=== PATIENT | female | born 1980 | race Two or more races ===

== ENCOUNTER 2024-06-24 15:42 | Inpatient (IN) | payer OTHER ==
[2024-06-24] MEDS ORDERED: MAG HYDROX/ALUMINUM HYD/SIMETH ES 30 ML SUSPENSION UDCUP PO PRN (16:00)
[2024-06-24] MEDS ORDERED: LOPERAMIDE HCL 2 MG CAPSULE PO PRN (16:00)
[2024-06-24] MEDS ORDERED: MAGNESIUM HYDROXIDE SUSPENSION 30 ML UDCUP PO PRN (16:00)
[2024-06-24] MEDS ORDERED: HALOPERIDOL 5 MG TABLET PO PRN (16:00)
[2024-06-24] MEDS ORDERED: ACETAMINOPHEN 325 MG TABLET PO PRN (16:00)
[2024-06-25] MEDS ORDERED: LORazepam 2 MG/ML VIAL ONE (03:42)
[2024-06-25] MEDS ORDERED: HALOPERIDOL LACTATE 5 MG/ML VIAL ONE (03:42)
[2024-06-25] MEDS ORDERED: DiphenhydrAMINE HCL 50 MG/ML VIAL ONE (03:42)
[2024-06-25] MEDS ORDERED: HALOPERIDOL LACTATE 5 MG/ML VIAL IM ONE (03:45)
[2024-06-25] MEDS ORDERED: INFLUENZA VIRUS VACCINE TVS (6MO+) 2024-25/PF 45 MCG/0.5 ML SYRINGE IM. ONE (04:15)
[2024-06-25 04:17] VITALS: BP 120/69; PULSE 64; RESP 16; O2SAT 96
[2024-06-25] MEDS: DiphenhydrAMINE HCL 50 MG/ML VIAL IM ONE ×2 (04:26→04:28)
[2024-06-25] MEDS: LORazepam 2 MG/ML VIAL IM ONE ×2 (04:26→04:28)
[2024-06-25] MEDS: HALOPERIDOL LACTATE 5 MG/ML VIAL IM ONE (04:27)
[2024-06-25 04:45] VITALS: RESP 16
[2024-06-25 06:14] VITALS: BP 133/57; PULSE 64; RESP 16
[2024-06-25] MEDS ORDERED: ALBUTEROL SULFATE HFA 90 MCG/PUFF 8 GM INHALER IH PRN (06:45)
[2024-06-25] MEDS ORDERED: CloNIDine HCL 0.1 MG TABLET PO PRN (06:45)
[2024-06-25] MEDS ORDERED: MAGNESIUM HYDROXIDE SUSPENSION 30 ML UDCUP PO PRN (06:45)
[2024-06-25] MEDS ORDERED: DOCUSATE SODIUM 100 MG CAPSULE PO PRN (06:45)
[2024-06-25] MEDS ORDERED: LOPERAMIDE HCL 2 MG CAPSULE PO PRN (06:45)
[2024-06-25] MEDS ORDERED: PETROLATUM,WHITE 28 GM JELLY TP PRN (06:45)
[2024-06-25] MEDS ORDERED: GuaiFENesin/D-METHORPHAN [SUGAR-FREE] 200-20MG/10 ML SYRUP UDCUP PO PRN (06:45)
[2024-06-25] MEDS ORDERED: MAG HYDROX/ALUMINUM HYD/SIMETH ES 30 ML SUSPENSION UDCUP PO PRN (06:45)
[2024-06-25 08:36] VITALS: BP 113/60; PULSE 65; RESP 16; TEMP 97.6; O2SAT 98
[2024-06-25] MEDS: RisperiDONE 1 MG TABLET PO SCH (11:30)
[2024-06-25 23:45] VITALS: BP 122/68; PULSE 68; RESP 16; TEMP 97.2; O2SAT 98
[2024-06-26 20:46] VITALS: RESP 18
[2024-06-27 08:27] VITALS: RESP 18
[2024-06-27 20:16] VITALS: BP 115/75; PULSE 91; RESP 18; TEMP 98.1; O2SAT 100
[2024-06-28 09:31] VITALS: RESP 18
[2024-06-28] MEDS ORDERED: HALOPERIDOL LACTATE 5 MG/ML VIAL ONE (12:43)
[2024-06-28] MEDS ORDERED: DiphenhydrAMINE HCL 50 MG/ML VIAL ONE (12:43)
[2024-06-28] MEDS ORDERED: LORazepam 2 MG/ML VIAL ONE (12:43)
[2024-06-28] MEDS: LORazepam 2 MG/ML VIAL IM ONE (12:59)
[2024-06-28] MEDS: DiphenhydrAMINE HCL 50 MG/ML VIAL IM ONE (13:01)
[2024-06-28] MEDS: HALOPERIDOL LACTATE 5 MG/ML VIAL IM ONE (13:01)
[2024-06-29 08:57] VITALS: RESP 16
[2024-06-29] MEDS: LORazepam 2 MG TABLET PO PRN (09:45)
[2024-06-29 20:06] VITALS: BP 101/67; PULSE 73; RESP 20; TEMP 98; O2SAT 100
[2024-06-30 08:11] VITALS: RESP 18
[2024-06-30 20:28] VITALS: RESP 18
[2024-06-30] MEDS: ACETAMINOPHEN 325 MG TABLET PO PRN (20:29)
[2024-06-30 21:14] VITALS: BP 131/78; PULSE 63; RESP 18; TEMP 98.1; O2SAT 100
[2024-06-30 21:26] VITALS: RESP 1
[2024-07-01 08:17] VITALS: BP 97/59; PULSE 74; RESP 19; TEMP 98.2; O2SAT 98
[2024-07-01] MEDS: RisperiDONE 2 MG TABLET PO SCH (21:36)
[2024-07-02 00:13] VITALS: RESP 18; O2SAT 97
[2024-07-02 09:03] VITALS: RESP 18
[2024-07-02 20:16] VITALS: RESP 18
[2024-07-03 08:27] LABS: EOSINOPHILS % (AUTO) 2.8 % (1.0-6.0); HEMATOCRIT 37.4 % (36-46); HEMOGLOBIN 12.5 g/dL (12.0-16.0); LYMPHOCYTES # (AUTO) 2.8 K/uL (1.0-4.8); LYMPHOCYTES % (AUTO) 36.2 % (22.0-44.0); MEAN CORPUSCULAR HGB CONC 33.4 G/dL (31.0-37.0); MEAN CORPUSCULAR VOLUME 87 fL (80-100); MONOCYTES # (AUTO) 0.4 K/uL (0.1-1.0); MONOCYTES % (AUTO) 5.8 % (2.0-9.0); NEUTROPHILS # (AUTO) 4.2 K/uL (1.8-7.7); NEUTROPHILS % (AUTO) 54.2 % (40.0-70.0); PLATELET COUNT (AUTO) 423 K/uL (150-450); RED CELL DISTRIBUTION WIDTH 13.7 % (11.5-14.5); WHITE BLOOD COUNT (AUTO) 7.7 K/uL (4.5-11.0)
[2024-07-03 08:29] VITALS: BP 105/61; PULSE 63; RESP 17; TEMP 97.6; O2SAT 100
[2024-07-03 20:17] VITALS: BP 109/64; PULSE 61; RESP 18; TEMP 98.1; O2SAT 98
[2024-07-04 08:27] LABS: APPEARANCE,URINE CLEAR (CLEAR); BILIRUBIN,URINE NEGATIVE (NEGATIVE); COLOR,URINE LIGHT YELLOW (YELLOW); GLUCOSE, URINE (UA) NEGATIVE (NEGATIVE); KETONES,URINE NEGATIVE (NEGATIVE); LEUKOCYTE ESTERASE ,URINE MODERATE (NEGATIVE); NITRATE,URINE NEGATIVE (NEGATIVE); OCCULT BLOOD,URINE NEGATIVE (NEGATIVE); PH,URINE 6.5 (5.0-8.0); PH,URINE DRUG SCREEN 6.5 (5.0-8.0); PROTEIN,URINE NEGATIVE (NEGATIVE); SPECIFIC GRAVITIY, URINE 1.018 (1.003-1.030); UROBILINOGEN,URINE <=1.0 mg/dL (<=1.0)
[2024-07-04 08:36] LABS: AMPHET/METH SCREEN,URINE NEGATIVE (NEGATIVE); BARBITURATE SCREEN, URINE NEGATIVE (NEGATIVE); BENZODIAZEPINES SCREEN,URINE NEGATIVE (NEGATIVE); CANNABINOID SCREEN,URINE NEGATIVE (NEGATIVE); COCAINE SCREEN,URINE NEGATIVE (NEGATIVE); METHADONE SCREEN, URINE NEGATIVE (NEGATIVE); OPIATE SCREEN,URINE NEGATIVE (NEGATIVE); PHENCYCLIDINE SCREEN,URINE NEGATIVE (NEGATIVE)
[2024-07-04 08:37] VITALS: BP 117/79; PULSE 66; RESP 18; TEMP 97.5; O2SAT 98
[2024-07-04 08:38] LABS: ALCOHOL, URINE DRUG SCREEN NEGATIVE (NEGATIVE)
[2024-07-04 08:43] LABS: BACTERIA,URINE None Seen /HPF (None Seen); RBC,URINE None Seen /HPF (0-2); SQUAMOUS EPITHELIAL CELL,UR Few /LPF (None Seen)
[2024-07-04 21:42] VITALS: BP 109/69; PULSE 69; RESP 18; TEMP 97.1; O2SAT 98
[2024-07-05 08:25] VITALS: RESP 18
[2024-07-06 08:31] VITALS: RESP 16
[2024-07-06] MEDS: CEPHALEXIN MONOHYDRATE 500 MG CAPSULE PO SCH (12:16)
[2024-07-06 20:23] VITALS: RESP 18
[2024-07-07 08:16] VITALS: BP 98/61; PULSE 67; RESP 18; TEMP 97.9; O2SAT 98
[2024-07-07 20:12] VITALS: BP 118/72; PULSE 71; RESP 17; TEMP 97.8; O2SAT 98
[2024-07-08 08:40] VITALS: RESP 16
[2024-07-08 20:19] VITALS: BP 102/54; PULSE 59; RESP 16; TEMP 97.6; O2SAT 99
[2024-07-09 08:48] VITALS: BP 107/62; PULSE 92; RESP 17; TEMP 98; O2SAT 100
[2024-07-09] MEDS: RisperiDONE ER SUSPENSION 100 MG/0.28 ML PRE-FILLED SYRINGE SQ SCH (10:34)
[2024-07-09 20:58] VITALS: BP 110/38; PULSE 96; RESP 16; TEMP 97.8; O2SAT 98
[2024-07-10 08:36] VITALS: BP 102/60; PULSE 73; RESP 16; TEMP 96.9; O2SAT 97
[2024-07-10 20:10] VITALS: RESP 16
[2024-07-11 08:09] VITALS: BP 96/59; PULSE 74; RESP 16; TEMP 98; O2SAT 98
[2024-07-11 20:35] VITALS: RESP 16
[2024-07-12 08:19] VITALS: BP 130/83; PULSE 90; RESP 16; TEMP 97; O2SAT 98
[2024-07-12 20:31] VITALS: BP 135/83; PULSE 61; RESP 18; TEMP 96.6; O2SAT 98
[2024-07-13 08:22] VITALS: RESP 16
[2024-07-13 20:28] VITALS: BP 126/81; PULSE 83; RESP 18; TEMP 97.9; O2SAT 98
[2024-07-14 08:12] VITALS: BP 122/69; PULSE 80; RESP 16; TEMP 97.9; O2SAT 98
[2024-07-14] MEDS: ONDANSETRON 4 MG TABLET PO PRN (15:58)
[2024-07-14 20:19] VITALS: BP 127/82; PULSE 76; RESP 17; TEMP 97.7; O2SAT 97
[2024-07-14] MEDS: ZOLPIDEM TARTRATE 10 MG TABLET PO PRN (20:31)
[2024-07-15 08:06] VITALS: BP 118/68; PULSE 75; RESP 16; TEMP 97.6; O2SAT 98
[2024-07-15 20:04] VITALS: BP 144/90; PULSE 83; RESP 18; TEMP 97.5; O2SAT 97
[2024-07-16 08:06] VITALS: BP 127/73; PULSE 85; RESP 16; TEMP 97; O2SAT 97
[2024-07-16 20:12] VITALS: BP_SYST 114; BP_SYST 133; BP_DIAS 74; BP_DIAS 83; PULSE 66; PULSE 84; RESP 16; RESP 18; TEMP 97.2; O2SAT 95; O2SAT 97
[2024-07-17 08:03] VITALS: BP 115/60; PULSE 80; RESP 16; TEMP 97; O2SAT 99
[2024-07-17 10:00] VITALS: RESP 17
[2024-07-17] MEDS: IBUPROFEN 400 MG TABLET PO PRN (10:00)
[2024-07-17 11:00] VITALS: RESP 16
[2024-07-17 20:20] VITALS: RESP 16
[2024-07-18 08:21] VITALS: BP 132/88; PULSE 78; RESP 18; TEMP 98.6; O2SAT 99
[2024-07-18 20:07] VITALS: BP 139/89; PULSE 87; RESP 18; TEMP 97.4; O2SAT 99
[2024-07-19 08:15] VITALS: BP 113/70; PULSE 78; RESP 16; TEMP 97.2; O2SAT 98
[2024-07-19 20:10] VITALS: BP 139/90; PULSE 64; RESP 17; TEMP 97.4; O2SAT 97
[2024-07-20 08:17] VITALS: BP 136/77; PULSE 78; RESP 16; TEMP 97.6; O2SAT 96
[2024-07-21] MEDS ORDERED: RISP100S SQ (19:39)
== END 2024-07-20 16:29 | disposition home or self-care (01) | DRG 885 ==
LOC: B2X 20:14 → B3A 06-25 11:25 → B2S 06-25 12:06 → B3A 07-01 18:00
PROVIDERS: ADMIT Psychiatry & Neurology Psychiatry; ATTEND Psychiatry & Neurology Psychiatry
PROC: GZHZZZZ Group Psychotherapy (ICD-10-PCS; principal; 2024-06-25)
PROC: GZ52ZZZ Individual Psychotherapy, Cognitive (ICD-10-PCS; 2024-06-25)
DX: F29 Unspecified psychosis not due to a substance or known physiological condition (principal); N39.0 Urinary tract infection, site not specified; R10.13 Epigastric pain; G47.00 Insomnia, unspecified; F22 Delusional disorders; F32.A Depression, unspecified; R40.0 Somnolence; F41.9 Anxiety disorder, unspecified; F20.9 Schizophrenia, unspecified; Z79.899 Other long term (current) drug therapy; Z91.148 Patient's other noncompliance with medication regimen for other reason
CPT/HCPCS: 80307; 81001; 84703; 85025; 90686; 99285; J1200; J1630; J2060; Q0162